=== PATIENT | male | born 1955 | race African-American/Black ===

== ENCOUNTER 2018-09-24 08:05 | Emergency (ER) | payer MEDICARE ==
[~2018-09-24] VITALS: Ht 180.3 cm; Wt 107.0 kg
[2018-09-24] MEDS ORDERED: IV NORMAL SALINE 500ML BAG 500 ML IV ONE (08:30)
--- NOTE | 2018-09-24 08:33 | PHYS DOC ---
Adult General Chief Complaint Chief Complaint: MECHANICAL FALL HPI HPI 63-year-old male presents to ER via POV for complaints of mechanical fall this morning around 6 AM. Pt states he was walking down the steps when he tripped on a pair of shoes causing him to fall down approximately 12 wooden steps. He reports he did strike the left side of his head denies loss of consciousness. Patient states he felt slightly dizzy following the fall and lying on the floor for approximately 15 minutes. Patient states he was then able to ambulate without assist. He reports he has left side head, neck, left side rib, and generalized muscle aches since the fall. He denies nausea or vomiting. Pt denies urinary sxs or incontinence of bowel/bladder. Pt is daily smoker. (FRED JIN APRN) Review of Systems Review of Systems Constitutional: Denies fatigue/weakness. Denies LOC Eyes: Denies change in visual acuity, redness, or eye pain [] HENT: Denies nose bleed Respiratory: Denies cough or shortness of breath [] Cardiovascular: Denies CP. Reports lt side rib pain GI: Denies abdominal pain, nausea, vomiting : Denies dysuria or hematuria. Denies incontinence of bowel/bladder Musculoskeletal: Denies joint pain. Reports back/neck pain Integument: Denies abrasions/bruising Neurologic: Denies focal weakness or sensory changes. Denies dizziness/headache All other systems were reviewed and found to be within normal limits, except as documented in this note. (FRED JIN APRN) Current Medications Current Medications Current Medications Medications (Trade) Dose Ordered Sig/Lia Start Time Stop Time Status Last Admin Dose Admin Fentanyl Citrate (Fentanyl 2ml Vial) 50 mcg 1X ONCE 09/24/18 09:15 09/24/18 09:16 DC 09/24/18 10:04 50 MCG Sodium Chloride 500 ml @ 500 mls/hr 1X ONCE 09/24/18 08:30 09/24/18 09:29 DC 09/24/18 09:11 500 MLS/HR (SACHIN DE LA VEGA MD) Allergies Allergies Allergies Coded Allergies Type Severity Reaction Last Updated Verified No Known Drug Allergies 09/24/18 No (SACHIN DE LA VEGA MD) Physical Exam Physical Exam Constitutional: Well developed, well nourished, no acute distress, non-toxic appearance. [] HENT: Normocephalic, atraumatic- non tender on palp and no palp swelling, bilateral ears normal- no ecchymosis behind bilat. ears , oropharynx moist, no oral injury, nose normal. [] Eyes: 3mm PERRLA, EOMI- no pain w/eye movements, no nystagmus, conjunctiva normal, no discharge. [] Neck: Normal range of motion, tender on palp. mid cspine without palp. deformity/crepitus, supple, no stridor. Trachea midline. CCollar placed on pt during initial exam with Cspine tenderness Cardiovascular: Heart rate regular rhythm, no murmur [] Lungs & Thorax: Bilateral breath sounds clear to auscultation- resp. equal/nonlabored. Tender on palp. lt lateral side/ribs- no palp. deformity/crep itus or visible injury. No chest tenderness or visible injury Abdomen: Bowel sounds normal, soft, no tenderness/distention/rigidity, no masses, no pulsatile masses. [] Skin: Warm, dry, no erythema, no rash. [] Back: Tender on palp. mid thoracic/lumbar- no swelling/palp. deformity or visible injury, no CVA tenderness. [] Extremities: Pelvis stable/nontender. No tenderness on palp. upper/lower extremities- no visible injuries, no cyanosis, no clubbing, ROM intact, no edema. 2+ radial and dorsalis pedis bilat. Neurologic: Alert and oriented X 3, normal motor function, normal sensory func tion, no focal deficits noted. [] Psychologic: Affect normal, judgement normal, mood normal. [] (REFFITT,FRED Mejias APRN) Current Patient Data Vital Signs Vital Signs Date Time Temp Pulse Resp B/P (MAP) Pulse Ox O2 Delivery O2 Flow Rate FiO2 09/24/18 10:32 68 16 98 09/24/18 10:04 Room Air 09/24/18 08:10 98.0 169/83 (111) 98.0 (SACHIN DE LA VEGA MD) Lab Values Laboratory Tests Test 09/24/18 09:02 09/24/18 10:10 White Blood Count 4.8 x10^3/uL (4.0-11.0) Red Blood Count 4.45 x10^6/uL (4.30-5.70) Hemoglobin 12.5 g/dL (13.0-17.5) L Hematocrit 38.3 % (39.0-53.0) L Mean Corpuscular Volume 86 fL (79-100) Mean Corpuscular Hemoglobin 28 pg (25-35) Mean Corpuscular Hemoglobin Concent 33 g/dL (31-37) Red Cell Distribution Width 14.9 % (11.5-14.5) H Platelet Count 145 x10^3/uL (140-400) Neutrophils (%) (Auto) 68 % (31-73) Lymphocytes (%) (Auto) 23 % (24-48) L Monocytes (%) (Auto) 7 % (0-9) Eosinophils (%) (Auto) 1 % (0-3) Basophils (%) (Auto) 1 % (0-3) Neutrophils # (Auto) 3.3 x10^3uL (1.8-7.7) Lymphocytes # (Auto) 1.1 x10^3/uL (1.0-4.8) Monocytes # (Auto) 0.3 x10^3/uL (0.0-1.1) Eosinophils # (Auto) 0.1 x10^3/uL (0.0-0.7) Basophils # (Auto) 0.0 x10^3/uL (0.0-0.2) Sodium Level 139 mmol/L (136-145) Potassium Level 3.6 mmol/L (3.5-5.1) Chloride Level 103 mmol/L (98-107) Carbon Dioxide Level 24 mmol/L (21-32) Anion Gap 12 (6-14) Blood Urea Nitrogen 18 mg/dL (8-26) Creatinine 1.1 mg/dL (0.7-1.3) Estimated GFR (Cockcroft-Gault) 81.3 BUN/Creatinine Ratio 16 (6-20) Glucose Level 133 mg/dL (70-99) H Calcium Level 9.2 mg/dL (8.5-10.1) Total Bilirubin 1.0 mg/dL (0.2-1.0) Aspartate Amino Transferase (AST) 52 U/L (15-37) H Alanine Aminotransferase (ALT) 40 U/L (16-63) Alkaline Phosphatase 57 U/L (46-116) Total Protein 7.7 g/dL (6.4-8.2) Albumin 3.8 g/dL (3.4-5.0) Albumin/Globulin Ratio 1.0 (1.0-1.7) Urine Collection Type Unknown Urine Color Yellow Urine Clarity Clear Urine pH 5.5 Urine Specific [place] >=1.030 Urine Protein Negative mg/dL (NEG-TRACE) Urine Glucose (UA) Negative mg/dL (NEG) Urine Ketones (Stick) 15 mg/dL (NEG) Urine Blood Negative (NEG) Urine Nitrite Negative (NEG) Urine Bilirubin Negative (NEG) Urine Urobilinogen Dipstick 1.0 mg/dL (0.2 mg/dL) Urine Leukocyte Esterase Small (NEG) Urine RBC Occ /HPF (0-2) Urine WBC 20-40 /HPF (0-4) Urine Squamous Epithelial Cells Few /LPF Urine Bacteria Few /HPF (0-FEW) Urine Mucus Marked /LPF Laboratory Tests 09/24/18 09:02 Laboratory Tests 09/24/18 09:02 (SACHIN DE LA VEGA MD) Lab Values Laboratory Tests Test 09/24/18 09:02 09/24/18 10:10 White Blood Count 4.8 x10^3/uL (4.0-11.0) Red Blood Count 4.45 x10^6/uL (4.30-5.70) Hemoglobin 12.5 g/dL (13.0-17.5) L Hematocrit 38.3 % (39.0-53.0) L Mean Corpuscular Volume 86 fL (79-100) Mean Corpuscular Hemoglobin 28 pg (25-35) Mean Corpuscular Hemoglobin Concent 33 g/dL (31-37) Red Cell Distribution Width 14.9 % (11.5-14.5) H Platelet Count 145 x10^3/uL (140-400) Neutrophils (%) (Auto) 68 % (31-73) Lymphocytes (%) (Auto) 23 % (24-48) L Monocytes (%) (Auto) 7 % (0-9) Eosinophils (%) (Auto) 1 % (0-3) Basophils (%) (Auto) 1 % (0-3) Neutrophils # (Auto) 3.3 x10^3uL (1.8-7.7) Lymphocytes # (Auto) 1.1 x10^3/uL (1.0-4.8) Monocytes # (Auto) 0.3 x10^3/uL (0.0-1.1) Eosinophils # (Auto) 0.1 x10^3/uL (0.0-0.7) Basophils # (Auto) 0.0 x10^3/uL (0.0-0.2) Sodium Level 139 mmol/L (136-145) Potassium Level 3.6 mmol/L (3.5-5.1) Chloride Level 103 mmol/L (98-107) Carbon Dioxide Level 24 mmol/L (21-32) Anion Gap 12 (6-14) Blood Urea Nitrogen 18 mg/dL (8-26) Creatinine 1.1 mg/dL (0.7-1.3) Estimated GFR (Cockcroft-Gault) 81.3 BUN/Creatinine Ratio 16 (6-20) Glucose Level 133 mg/dL (70-99) H Calcium Level 9.2 mg/dL (8.5-10.1) Total Bilirubin 1.0 mg/dL (0.2-1.0) Aspartate Amino Transferase (AST) 52 U/L (15-37) H Alanine Aminotransferase (ALT) 40 U/L (16-63) Alkaline Phosphatase 57 U/L (46-116) Total Protein 7.7 g/dL (6.4-8.2) Albumin 3.8 g/dL (3.4-5.0) Albumin/Globulin Ratio 1.0 (1.0-1.7) Urine Collection Type Unknown Urine Color Yellow Urine Clarity Clear Urine pH 5.5 Urine Specific [place] >=1.030 Urine Protein Negative mg/dL (NEG-TRACE) Urine Glucose (UA) Negative mg/dL (NEG) Urine Ketones (Stick) 15 mg/dL (NEG) Urine Blood Negative (NEG) Urine Nitrite Negative (NEG) Urine Bilirubin Negative (NEG) Urine Urobilinogen Dipstick 1.0 mg/dL (0.2 mg/dL) Urine Leukocyte Esterase Small (NEG) Urine RBC Occ /HPF (0-2) Urine WBC 20-40 /HPF (0-4) Urine Squamous Epithelial Cells Few /LPF Urine Bacteria Few /HPF (0-FEW) Urine Mucus Marked /LPF Laboratory Tests 09/24/18 09:02 Laboratory Tests 09/24/18 09:02 (FRED JIN APRN) EKG EKG EKG obtained 09/24/18 at [address] De La Vega- no previous EKGs in pt's records Sinus rhythm Lt BBB Rate 66 No STEMI (FRED JIN JONATHAN) Radiology/Procedures Radiology/Procedures PROCEDURE: CT CHEST W/CONTRAST PQRS Compliance Statement: One or more of the following individualized dose reduction techniques were utilized for this examination: 1. Automated exposure control 2. Adjustment of the mA and/or kV according to patient size 3. Use of iterative reconstruction technique CT THORACIC SPINE RECONSTRUCT, CT CHEST W/CONTRAST Clinical Indication: fall down 12 steps this morning, back pain Comparison: None. TECHNIQUE: Helical CT imaging of the chest is performed after 75 cc Omnipaque 300 IV contrast. Using source images, small [id number], multiplanar reformats of the thoracic spine performed. Findings: There is no acute traumatic aortic injury. No mediastinal hematoma. Pulmonary trunk is dilated suggestive of pulmonary arterial hypertension. Small amount of air posterior lateral to the trachea may be due to tracheal or esophageal diverticulum although definite communication is not seen. Finding is favored to be incidental. There is severe three-vessel coronary artery disease. Cardiac size normal, no pericardial effusion. There is no pneumothorax. There are bilateral calcified pleural plaques. The central airway is patent. Calcified granuloma peripheral right upper lobe. There is mild bilateral lower lobe atelectasis. 5 mm subpleural nodule in the superior segment of the left lower lobe, image 32. Visualized upper abdomen is unremarkable. No acute rib fracture is identified. There is no acute compression fracture or subluxation of the thoracic spine. There is moderate degenerative endplate spurring with multilevel bridging bone spurs laterally and anteriorly. Mild disc space narrowing. No high-grade narrowing of the central canal is seen. IMPRESSION: 1. No acute traumatic injury in the chest. 2. No acute compression fracture or malalignment of the thoracic spine. 3. Pulmonary trunk is dilated suggestive of pulmonary arterial hypertension. 4. 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 5. There is a 5 mm noncalcified nodule in the left lower lobe. Recommend CT chest follow-up in 12 months per Fleischner Society guidelines. Electronically signed by: Boyd Jimenez MD (09/24/2018 10:33 AM) [id number] DICTATED and SIGNED BY: BOYD JIMENEZ MD DATE: 09/24/18 1033 PROCEDURE: [facility] Compliance Statement: One or more of the following individualized dose reduction techniques were utilized for this examination: 1. Automated exposure control 2. Adjustment of the mA and/or kV according to patient size 3. Use of iterative reconstruction technique CT HEAD AND CERVICAL SPINE WITHOUT CONTRAST History: fall down 12 steps this morning, trauma Comparison: None. Procedure: Axial images are obtained of the head from the skull base through the vertex without IV contrast. Noncontrast helical CT of the cervical spine was performed. Axial, sagittal, and coronal reconstructions were obtained. Findings: The ventricles and sulci are normal for the patient's age. No mass-effect, midline shift, hemorrhage or obvious acute infarction is identified. Basilar cisterns are patent. Bone windows demonstrate no significant calvarial abnormality. Moderate mucosal thickening bilateral ethmoid sinuses. Minimally mucosal thickening bilateral sphenoid sinuses. No air-fluid level. Mastoid air cells are well aerated. There is no acute fracture or acute malalignment of the cervical spine. The facet joints are intact, mildly hypertrophic. Uncovertebral joint hypertrophy. These 2 factors contribute to multilevel neural foraminal narrowing. The vertebral body height and alignment are maintained. There is degenerative endplate spurring in the cervical spine, most advanced at C5/C6 and C6/C7. The craniovertebral junction is intact. There are bilateral carotid bulb calcifications. The visualized lung apices are clear. Lung apices are minimally imaged. IMPRESSION: 1. No acute intracranial abnormality. 2. No acute fracture of the cervical spine. Electronically signed by: Boyd Jimenez MD (09/24/2018 10:04 AM) [id number] DICTATED and SIGNED BY: BOYD JIMENEZ MD DATE: 09/24/18 1004 PROCEDURE: CHEST AP ONLY CHEST AP ONLY History: LEFT SIDED RIB PAIN AFTER FALL DOWN STAIRS TODAY. Heart size is mildly prominent, could be accentuated by the technique. No evidence of pneumothorax. No pleural effusion. No airspace consolidation. IMPRESSION: No evidence of consolidating infiltrate. Electronically signed by: David Biswas MD (09/24/2018 10:34 AM) [id number] DICTATED and SIGNED BY: DAVID BISWAS MD DATE: 09/24/18 1034 (FRED JIN APRN) Course & Med Decision Making Course & Med Decision Making Pertinent Labs and Imaging studies reviewed. (See chart for details) 1010: CCollar removed with no acute findings on head/CSpine CT. Discussed CT results with pt. He is no visible distress denying CP/SOA and reports pain had improved following dose of pain med. CT chest is pending. Pt was evaluated in the ER following a mechanical fall at home- he denied any LOC and has remained A&Ox3 while in the ER. Pt had imaging of head/neck/back obtained with no reported acute findings- pt had "5 mm noncalcified nodule in the left lower lobe" which he was advised would need f/u for re-eval. Chest xray neg. for acute findings. Pt has had no c/o SOA/CP. He does have continued tenderness on lt side ribs. This was discussed along with smoking cessation and plans to send him home w/incentive spirometer. Pt remains PMS in all extremities w/full ROM. Discussed plans for home discharge w/pt to f/u with PCP as needed. Education provided on ice/heat compress use and tylenol/ibuprofen PRN. Pt's case and plan of care was discussed with Dr. De La Vega- pt had lt BBB on EKG with no previous EKGs in pt's records. He was uncertain if this had been dx'd previously. He is denying any CP/palpitations. Lt side rib pain is reproducible on palp. Pt has denied any recent CP/SOA. Pt was seen exiting ER by this provider with steady unassisted gait- he was in no distress. (FRED JIN APRN) Course & Med Decision Making I was available for consultation regarding this patient's care. I did not see or examine the pt unless otherwise specified. (SACHIN DE LA VEGA MD) Dragon Disclaimer Dragon Disclaimer This electronic medical record was generated, in whole or in part, using a voice recognition dictation system. (FRED JIN APRN) Departure Departure Impression: Primary Impression: Musculoskeletal chest pain Additional Impressions: Head injury Back pain Fall Disposition: 01 HOME, SELF-CARE Condition: STABLE Patient Instructions: Back Pain, Adult, Fall Prevention and Home Safety, Head Injury, Adult, Incentive Spirometer, Musculoskeletal Pain Additional Instructions: Tylenol and/or ibuprofen as directed on container as needed for pain relief. Ice and/or heat compress to affected area every 3-4 hours for 20-30 minutes at a time. If symptoms persist follow-up with your primary care physician for reevaluation and further care. Problem Qualifiers FRED JIN APRN Sep 24, 2018 08:33 SACHIN DE LA VEGA MD Sep 24, 2018 17:36
[2018-09-24 09:15] LABS: BASO % 1 % (0-3); EOS # 0.1 x10^3/uL (0.0-0.7); EOS % 1 % (0-3); HEMATOCRIT 38.3 % (39.0-53.0); HEMOGLOBIN 12.5 g/dL (13.0-17.5); LYMPH # 1.1 x10^3/uL (1.0-4.8); LYMPH % 23 % (24-48); MEAN CORPUSCULAR HEMOGLOBIN 28 pg (25-35); MEAN CORPUSCULAR HGB CONC 33 g/dL (31-37); MEAN CORPUSCULAR VOLUME 86 fL (79-100); MONO # 0.3 x10^3/uL (0.0-1.1); MONO % 7 % (0-9); NEUT # 3.3 x10^3uL (1.8-7.7); NEUT % 68 % (31-73); PLATELET COUNT 145 x10^3/uL (140-400); RED BLOOD COUNT 4.45 x10^6/uL (4.30-5.70); RED CELL DISTRIBUTION WIDTH 14.9 % (11.5-14.5); WHITE BLOOD COUNT 4.8 x10^3/uL (4.0-11.0)
[2018-09-24] MEDS ORDERED: fentaNYL PF VIAL 100 MCG/2 ML VIAL IV ONE (09:15)
[2018-09-24 09:18] LABS: CALCIUM 9.2 mg/dL (8.5-10.1); CREATININE 1.1 mg/dL (0.7-1.3); GFR 81.3; POTASSIUM 3.6 mmol/L (3.5-5.1)
[2018-09-24 09:24] LABS: ALBUMIN 3.8 g/dL (3.4-5.0); TOTAL PROTEIN 7.7 g/dL (6.4-8.2)
--- NOTE | 2018-09-24 09:28 | EKG ---
[facility] [address] [place] [address] Test Date: 2018-09-24 Test Time: 08:49:18 Pat Name: NEELA MCKINNON Department: Room: Gender: M Shoe Packer: : 1955 Requested By: FRED JIN Order Number: [id number] Reading MD: John Arguello Measurements Intervals [place] Rate: 66 P: 35 [place]: 172 QRS: -32 QRSD: 116 T: 122 QT: 470 QTc: 495 Interpretive Statements SINUS RHYTHM LEFT ATRIAL ABNORMALITY ABNORMAL LEFT AXIS DEVIATION LVH WITH REPOLARIZATION ABNORMALITY QRS(T) CONTOUR ABNORMALITY CONSIDER ANTEROSEPTAL MYOCARDIAL DAMAGE CONSISTENT WITH INFERIOR INFARCT PROBABLY OLD ABNORMAL ECG RI6.01 Unconfirmed report No previous ECG available for comparison Electronically Signed On 09-30-2018 11:31:27 CDT by John Arguello
--- NOTE | 2018-09-24 10:07 | RAD ---
PQRS Compliance Statement: One or more of the following individualized dose reduction techniques were utilized for this examination: 1. Automated exposure control 2. Adjustment of the mA and/or kV according to patient size 3. Use of iterative reconstruction technique CT HEAD AND CERVICAL SPINE WITHOUT CONTRAST History: fall down 12 steps this morning, trauma Comparison: None. Procedure: Axial images are obtained of the head from the skull base through the vertex without IV contrast. Noncontrast helical CT of the cervical spine was performed. Axial, sagittal, and coronal reconstructions were obtained. Findings: The ventricles and sulci are normal for the patient's age. No mass-effect, midline shift, hemorrhage or obvious acute infarction is identified. Basilar cisterns are patent. Bone windows demonstrate no significant calvarial abnormality. Moderate mucosal thickening bilateral ethmoid sinuses. Minimally mucosal thickening bilateral sphenoid sinuses. No air-fluid level. Mastoid air cells are well aerated. There is no acute fracture or acute malalignment of the cervical spine. The facet joints are intact, mildly hypertrophic. Uncovertebral joint hypertrophy. These 2 factors contribute to multilevel neural foraminal narrowing. The vertebral body height and alignment are maintained. There is degenerative endplate spurring in the cervical spine, most advanced at C5/C6 and C6/C7. The craniovertebral junction is intact. There are bilateral carotid bulb calcifications. The visualized lung apices are clear. Lung apices are minimally imaged. IMPRESSION: 1. No acute intracranial abnormality. 2. No acute fracture of the cervical spine. Electronically signed by: Boyd Jimenez MD (09/24/2018 10:04 AM) [id number]
--- NOTE | 2018-09-24 10:21 | RAD ---
PQRS Compliance Statement: One or more of the following individualized dose reduction techniques were utilized for this examination: 1. Automated exposure control 2. Adjustment of the mA and/or kV according to patient size 3. Use of iterative reconstruction technique CT LUMBAR SPINE WO CONTRAST Clinical Indication: fall down 12 steps this morning, trauma, back pain Comparison: None. TECHNIQUE: Helical CT imaging of the lumbar spine is performed without IV contrast. Findings: The vertebral body height and alignment are maintained. Vacuum disc phenomenon L4/L5. Disc space narrowing and significant endplate irregularity and sclerosis of L3/L4. Large Schmorl's node inferior endplate of L2. Degenerative endplate spurring throughout the lumbar spine is seen. No acute fracture is seen. The sacroiliac joints are symmetric. Transverse processes are intact. L3/L4 there is posterior disc osteophyte complex and mild facet hypertrophy. There is narrowing of the lateral recesses. There is mild central canal stenosis. There is moderate to severe right and moderate left neural foraminal narrowing. Severe atherosclerotic calcification of the distal abdominal aorta and iliac arteries. There is no aneurysm. IMPRESSION: There is no acute fracture or malalignment of the lumbar spine. Electronically signed by: Boyd Jimenez MD (09/24/2018 10:18 AM) [id number]
[2018-09-24 10:24] LABS: BILIRUBIN,URINE NEGATIVE (NEG); CLARITY,URINE CLEAR; COLOR,URINE YELLOW; NITRITE,URINE NEGATIVE (NEG); PH,URINE 5.5; PROTEIN,URINE NEGATIVE (NEG-TRACE)
[2018-09-24 10:32] VITALS: BP 133/83
--- NOTE | 2018-09-24 10:35 | RAD ---
PQRS Compliance Statement: One or more of the following individualized dose reduction techniques were utilized for this examination: 1. Automated exposure control 2. Adjustment of the mA and/or kV according to patient size 3. Use of iterative reconstruction technique CT THORACIC SPINE RECONSTRUCT, CT CHEST W/CONTRAST Clinical Indication: fall down 12 steps this morning, back pain Comparison: None. TECHNIQUE: Helical CT imaging of the chest is performed after 75 cc Omnipaque 300 IV contrast. Using source images, small [id number], multiplanar reformats of the thoracic spine performed. Findings: There is no acute traumatic aortic injury. No mediastinal hematoma. Pulmonary trunk is dilated suggestive of pulmonary arterial hypertension. Small amount of air posterior lateral to the trachea may be due to tracheal or esophageal diverticulum although definite communication is not seen. Finding is favored to be incidental. There is severe three-vessel coronary artery disease. Cardiac size normal, no pericardial effusion. There is no pneumothorax. There are bilateral calcified pleural plaques. The central airway is patent. Calcified granuloma peripheral right upper lobe. There is mild bilateral lower lobe atelectasis. 5 mm subpleural nodule in the superior segment of the left lower lobe, image 32. Visualized upper abdomen is unremarkable. No acute rib fracture is identified. There is no acute compression fracture or subluxation of the thoracic spine. There is moderate degenerative endplate spurring with multilevel bridging bone spurs laterally and anteriorly. Mild disc space narrowing. No high-grade narrowing of the central canal is seen. IMPRESSION: 1. No acute traumatic injury in the chest. 2. No acute compression fracture or malalignment of the thoracic spine. 3. Pulmonary trunk is dilated suggestive of pulmonary arterial hypertension. 4. 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 5. There is a 5 mm noncalcified nodule in the left lower lobe. Recommend CT chest follow-up in 12 months per Fleischner Society guidelines. Electronically signed by: Boyd Jimenez MD (09/24/2018 10:33 AM) [id number]
--- NOTE | 2018-09-24 10:37 | RAD ---
CHEST AP ONLY History: LEFT SIDED RIB PAIN AFTER FALL DOWN STAIRS TODAY. Heart size is mildly prominent, could be accentuated by the technique. No evidence of pneumothorax. No pleural effusion. No airspace consolidation. IMPRESSION: No evidence of consolidating infiltrate. Electronically signed by: David Biswas MD (09/24/2018 10:34 AM) [id number]
[2018-09-24 10:42] LABS: BACTERIA,URINE FEW /HPF (0-FEW); RBC,URINE OCC /HPF (0-2); SQUAMOUS EPITHELIAL CELL,UR FEW /LPF; WBC,URINE 20-40 /HPF (0-4)
== END 2018-09-24 10:57 | disposition home or self-care (01) ==
LOC: ER 08:05
DX: S09.90XA Unspecified injury of head, initial encounter (principal); R07.89 Other chest pain; M54.5 Low back pain; M54.6 Pain in thoracic spine; M79.10 Myalgia, unspecified site; W10.8XXA Fall (on) (from) other stairs and steps, initial encounter; Y93.01 Activity, walking, marching and hiking; Y92.89 Other specified places as the place of occurrence of the external cause; Y99.8 Other external cause status
CPT/HCPCS: 36415; 70450; 71045; 71260; 72125; 72131; 80053; 81001; 85025; 87086; 93005; 96374; 99285; J3010; J7040